=== PATIENT | female | born 1995 | race African-American/Black ===

== ENCOUNTER 2020-01-20 16:50 | Outpatient (REF) | payer OTHER, MEDICAID, SELFPAY | END 2020-01-20 16:51 | disposition home or self-care (01) | LOC: HO.LAB 16:50 | PROVIDERS: Visit Provider Internal Medicine | DX: Z20.828 Contact with and (suspected) exposure to other viral communicable diseases (principal) | CPT/HCPCS: C9803; U0003 ==

== ENCOUNTER 2020-02-10 17:11 | Outpatient (REF) | payer MEDICAID, SELFPAY | END 2020-02-10 17:12 | disposition home or self-care (01) | LOC: HO.LAB 17:11 | PROVIDERS: Visit Provider Internal Medicine | DX: Z20.828 Contact with and (suspected) exposure to other viral communicable diseases (principal) | CPT/HCPCS: C9803; U0003 ==